=== PATIENT | male | born 1945 | race Caucasian/White ===

== ENCOUNTER 2017-09-30 09:26 | Emergency (ER) | payer MEDICARE ==
[~2017-09-30] VITALS: Ht 177.8 cm; Wt 145.1 kg
[2017-09-30 09:28] VITALS: Ht 177.8 cm; Wt 145.1 kg
[2017-09-30 09:47] VITALS: BP 117/57
== END 2017-09-30 09:55 | disposition expired ==
LOC: ED 09:26
DX: I46.9 Cardiac arrest, cause unspecified (principal)
CPT/HCPCS: 83880; J0282; J0461; J7060; Q0092